=== PATIENT | female | born 1985 | race Caucasian/White ===

== ENCOUNTER → 2016-04-19 | Outpatient (CLI) | payer OTHER ==
--- NOTE | 2016-04-19 13:18 | DX ---
Right ankle, 3 views. HISTORY: Persistent pain after trauma. FINDINGS: There is a small fragment of bone interposed between the medial malleolus and medial talus compatible with a small avulsion. There is also mild posttraumatic deformity of the inferior tip of t he medial malleolus. No acute fracture. Mortise is intact. No joint effusion. IMPRESSION: 1. Sequela of prior trauma to the medial malleolus, without acute abnormality.
== END ==
LOC: BMCIMAGING 12:53
PROVIDERS: ATTEND Nurse Practitioner Adult Health
DX: S99.911S Unspecified injury of right ankle, sequela (principal)